=== PATIENT | male | born 1945 | race Caucasian/White ===

== ENCOUNTER → 2017-10-14 | Outpatient (CLI) | payer OTHER, MEDICAID ==
--- NOTE | 2017-10-14 12:30 | MRI ---
HISTORY: Chronic low back pain, radiculopathy Study: MRI lumbar spine without contrast Comparison: None Technique: Multiplanar multi-sequence MRI of the lumbar spine was obtained. Sagittal T1, sagittal T2 , and stir weighted images, axial T1, and axial T2 images were obtained. Findings: The lumbar spine demonstrates normal alignment. No abnormal cord or marrow signal identified. The co nus terminates at the junction of T12 and L1. The surrounding soft tissues are within normal limits. Vertebral body heights are preserved. Multilevel spondylosis and disc desiccation is present. T12 -- L1: No significant stenosis. L1 -- L2: Facet arthropathy and congenital pedicle shortening contribute to mild spinal canal narrowi ng. No foraminal stenosis. L2 -- L3: Facet arthropathy and congenital pedicle shortening are present in conjunction with a broad -based disc bulge and spondylitic changes resulting in severe spinal canal stenosis, severe lateral r ecess stenosis and moderate to severe foraminal entry stenosis. L3 -- L4: Facet arthropathy and congenital pedicle shortening are present in conjunction with a broad -based disc bulge and spondylitic changes resulting in severe spinal canal stenosis, severe lateral r ecess stenosis and moderate to severe foraminal entry stenosis. L4 -- L5: There is moderate spinal canal stenosis due to congenital pedicle shortening, facet arthrop athy and a circumferential disc bulge. There is severe bilateral lateral recess stenosis, severe left foraminal stenosis, and moderate to severe right foraminal stenosis. L5 -- S1: Facet arthropathy without significant stenosis. IMPRESSION: 1. Severe spinal canal stenosis at L2-L3 and L3-L4 with associated severe lateral recess stenosis and moderate to severe bilateral foraminal stenosis. 2. Moderate spinal canal stenosis at L4-5 with severe bilateral lateral recess stenosis, severe left foraminal stenosis, and moderate to severe right foraminal stenosis. Reported By:
== END | disposition home or self-care (01) | DRG 552 ==
LOC: RAD 10:17
PROVIDERS: ATTEND Nurse Practitioner
DX: M54.5 Low back pain (principal); M48.061 Spinal stenosis, lumbar region without neurogenic claudication
CPT/HCPCS: 72148

== ENCOUNTER 2019-10-09 13:02 | Observation (INO) ==
[2019-10-09] MEDS: NORCO 7.5/325 MG TAB PO SCH ×2 (15:26→20:52)
[2019-10-09] MEDS: TORADOL 30 MG VIAL IVP SCH ×2 (15:27→20:53)
[2019-10-09] MEDS: NS 1000 ML 1,000 ML IV SCH (15:27)
[2019-10-09 15:48] VITALS: BMI 30.5
[2019-10-09 15:58] LABS: BASOPHILS # (AUTO) 0.1 X10^3/uL (0.0-0.1); BASOPHILS % (AUTO) 0.6 % (0.2-1.0); EOSINOPHILS # (AUTO) 0.1 x10^3/uL (0.0-0.2); EOSINOPHILS % (AUTO) 0.9 % (0.9-2.9); HEMATOCRIT 45.1 % (42.0-54.0); LYMPHOCYTES # (AUTO) 0.7 X10^3/uL (1.3-2.9); MEAN CORPUSCULAR HEMOGLOBIN 29.7 pg (27.0-34.0); MEAN CORPUSCULAR HGB CONC 33.2 g/dL (33.0-35.0); MEAN CORPUSCULAR VOLUME 89.3 fL (80.0-100.0); MONOCYTES # (AUTO) 0.6 x10^3/uL (0.3-0.8); MONOCYTES % (AUTO) 7.5 % (0.0-13.0); PLATELET COUNT 165 X10^3/uL (150.0-450.0); RED BLOOD COUNT 5.05 X10^6/uL (4.7-6.0); RED CELL DISTRIBUTION WIDTH 14.7 % (11.6-16.5); WHITE BLOOD COUNT 8.5 X10^3/uL (3.6-10.0)
[2019-10-09 16:21] LABS: ALANINE AMINOTRANSFERASE 12 Units/L (12-78); ALKALINE PHOSPHATASE 113 Units/L (46-116); ASPARTATE AMINO TRANSFERASE 17 Units/L (15-37); BLOOD UREA NITROGEN 25 mg/dL (7-18); CALCIUM 8.6 mg/dL (8.5-10.1); CARBON DIOXIDE 32.8 mmol/L (21-32); CHLORIDE 106 mmol/L (98-107); COR CA(FOR HYPOALB) 9.4 mg/dL (8.5-10.1); COR NA(FOR HYPERGLY) 145 mmol/L (136-145); CREATININE 1.32 mg/dL (0.70-1.30); SODIUM 144 mmol/L (136-145); TOTAL PROTEIN 7.2 g/dL (6.4-8.2); eGFR NON BLACK RACES 56 (>60)
[2019-10-09 20:28] LABS: BILIRUBIN,URINE NEGATIVE (NEGATIVE); BLOOD/HEMOGLOBIN,URINE 1+ (NEGATIVE); GLUCOSE, URINE 1+ (NEGATIVE); KETONES,URINE NEGATIVE (NEGATIVE); LEUKOCYTE ESTERASE ,URINE 1+ (NEGATIVE); NITRITES,URINE NEGATIVE (NEGATIVE); PH,URINE 6.5 (5.0 - 8.0); PROTEIN,URINE 3+ (NEGATIVE); UROBILINOGEN,URINE 2+ (NORMAL)
[2019-10-09 20:59] LABS: APPEARANCE,URINE CLEAR (CLEAR); COLOR,URINE YELLOW (YELLOW)
[2019-10-09 21:00] LABS: BACTERIA,URINE TRACE /HPF (NEGATIVE); MUCUS,URINE FEW /HPF (NEGATIVE); SQUAMOUS EPITHELIAL CELL,UR FEW /HPF (NEGATIVE)
[2019-10-09] MEDS ORDERED: COZAAR ONE (23:54)
[2019-10-10] MEDS: COZAAR PO SCH ×2 (00:05→08:48)
[2019-10-10] MEDS: NORCO 7.5/325 MG TAB PO SCH ×3 (02:32→14:17)
[2019-10-10] MEDS: TORADOL 30 MG VIAL IVP SCH ×3 (02:32→14:17)
[2019-10-10] MEDS: NS 1000 ML 1,000 ML IV SCH (02:32)
[2019-10-10 05:35] LABS: ALANINE AMINOTRANSFERASE 11 Units/L (12-78); ALBUMIN 2.5 g/dL (3.4-5.0); ALKALINE PHOSPHATASE 94 Units/L (46-116); ASPARTATE AMINO TRANSFERASE 13 Units/L (15-37); BLOOD UREA NITROGEN 24 mg/dL (7-18); CALCIUM 7.6 mg/dL (8.5-10.1); CARBON DIOXIDE 28.5 mmol/L (21-32); CHLORIDE 107 mmol/L (98-107); COR CA(FOR HYPOALB) 8.8 mg/dL (8.5-10.1); CREATININE 1.15 mg/dL (0.70-1.30); SODIUM 143 mmol/L (136-145); eGFR NON BLACK RACES > 60 (>60)
[2019-10-10] MEDS ORDERED: KLOR-CON PO PRN (05:49)
[2019-10-10] MEDS ORDERED: MICRO K EXTEN CAP 10 MEQ PO PRN (05:49)
[2019-10-10] MEDS ORDERED: POTASSIUM CHL 60 MEQ/NS 0.45% 500 ML IV PRN (05:49)
[2019-10-10] MEDS ORDERED: K-DUR TAB 20 MEQ PO PRN (05:49)
[2019-10-10] MEDS ORDERED: POTASSIUM CHL 40 MEQ/NS 0.45% 500 ML IV PRN (05:49)
[2019-10-10] MEDS ORDERED: POTASSIUM CHLORIDE LIQ 20 MEQ UDC PO PRN (05:49)
[2019-10-10] MEDS ORDERED: K-RIDER 10 MEQ/NS 100 ML 10 MEQ/100 ML BAG IV PRN (05:49)
[2019-10-10 06:16] LABS: BASOPHILS % (AUTO) 0.5 % (0.2-1.0); EOSINOPHILS # (AUTO) 0.2 x10^3/uL (0.0-0.2); EOSINOPHILS % (AUTO) 3.8 % (0.9-2.9); HEMATOCRIT 40.5 % (42.0-54.0); HEMOGLOBIN 13.2 g/dL (13.5-18.0); LYMPHOCYTES # (AUTO) 1.4 X10^3/uL (1.3-2.9); LYMPHOCYTES % (AUTO) 21.9 % (21.0-51.0); MEAN CORPUSCULAR HEMOGLOBIN 29.6 pg (27.0-34.0); MEAN CORPUSCULAR HGB CONC 32.5 g/dL (33.0-35.0); MEAN PLATELET VOLUME 10.4 fL (7.4-11.0); MONOCYTES # (AUTO) 0.6 x10^3/uL (0.3-0.8); MONOCYTES % (AUTO) 8.7 % (0.0-13.0); NEUTROPHILS # (AUTO) 4.1 x10^3/uL (2.2-4.8); NEUTROPHILS % (AUTO) 65.1 % (42.0-75.0); PLATELET COUNT 146 X10^3/uL (150.0-450.0); RED BLOOD COUNT 4.45 X10^6/uL (4.7-6.0); RED CELL DISTRIBUTION WIDTH 14.8 % (11.6-16.5); WHITE BLOOD COUNT 6.4 X10^3/uL (3.6-10.0)
[2019-10-10] MEDS: MAGNESIUM SULFATE 1 GRAM/100 mL PREMIX 1 GM/100 ML BAG IV PRN ×2 (06:44→11:53)
--- NOTE | 2019-10-10 09:15 | MRI ---
HISTORYIntractable lower back painSTUDYMRI OF THE LUMBAR SPINE without IV CONTRASTCOMPARISONNoneTECHNIQUEMultiplaner, multisequence MRI of the lumbar spine is performed withou t IV contrastFINDINGSThe mobility scooter repairer view demonstrates mild levocurvature of the lumbar spine centered at L 3 with [place] angle measurement less than 10 degrees. There is multilevel desiccation of disc signal in dicating degenerative signal changes of the intervertebral discs, most severe at L2-3, L3-4 and L4-5 levels. There is mild disc space narrowing at L1-2, L2-3 and L3-4. The paraspinal muscles are well de veloped without atrophy. The conus medullaris terminates at L1, maintaining appropriate signal and ov erall morphology. No paraspinal fluid collections are demonstrated. Large right-sided bridging osteop hyte complexes observed at L2-3.The cauda equina nerve roots are crowded at the levels of L2-3 and L3 -4. This will be discussed in greater detail below. No clumping of the nerve roots identified.Beginni ng at the level of L1-L2, endplate spondylosis, desiccation of disc signal and mild disc space narrow ing is observed. Endplate spondylosis is evident. There is mild circumferential disc bulge and hyper trophic facet arthropathy is observed without spinal canal compromise. There is mild to moderate bila teral neural foraminal compromise.L2-L3 level demonstrates and extrusion type right paracentral disc herniation which migrates inferiorly to the intervertebral disc, residing along the posterior border of the L3 vertebral body. There is approximately 1.7 cm of inferior migration of disc material with n o sequestered disc fragments. Spondylosis and hyper trophic facet arthropathy are observed. There is severe right-sided neural foraminal compromise with impingement of the exiting nerve root. There is m oderate to severe left-sided neural foraminal compromise. The transverse diameter of the spinal canal is severely narrowed at 7 mm while the AP diameter is also approximately 7 mm. Overall this is consi stent with severe spinal stenosis. The disc extrusion, as measured in the sagittal plane is approxima tely 2.8 cm in length and 9 mm anteriorly to posteriorly.At the level of L3-L4, there is moderate dif fuse circumferential disc bulge with a superimposed central disc protrusion component which indents a nd compresses the thecal sac. Posteriorly there is moderate facet arthropathy and redundancy of the l igamentum flavum is observed. The spinal canal is severely narrowed, measuring only 5 mm anteriorly t o posteriorly. There is severe left-sided neural foraminal compromise with impingement of the exiting nerve root. There is moderate to severe right-sided neural foraminal compromise.L4-L5 level demonstr ates diffuse circumferential disc bulge, spondylosis and hyper trophic facet arthropathy with redunda ncy of the ligamentum flavum. The spinal canal is narrowed to approximately 9 mm consistent with mild spinal stenosis. However there is severe bilateral neural foraminal compromise.L5-S1 level demonstra suzi no evidence of a disc herniation. Hyper trophic facet arthropathy, spondylosis and mild circumfer ential disc bulge contribute to moderate left and right neural foraminal compromise. Spinal canal cl[place] meter measurement is approximately 9.5 mm consistent with mild spinal stenosis.No acute fractures or pars defects are demonstrated.IMPRESSIONAt L2-L3, there is a large right paracentral disc extrusion w ith inferior migration of disc material, compressing the thecal sac and contributing to severe spinal stenosis.At L3-L4, there is diffuse circumferential disc bulge with a superimposed central disc prot rusion resulting in severe spinal stenosisMild levocurvature of the lumbar spine affiliated with [facility] degenerative disc disease, spondylosis and facet arthropathy.The collaborative degenerative fi ndings contribute to multilevel spinal stenosis and bilateral neural foraminal compromise. A detailed level by level analysis is provided within the body of the report.Electronically signed by: KATHY CRAWLEY (Oct 10, 2019 09:13:13)
[2019-10-10] MEDS ORDERED: ELIQUIS PO SCH (10:15)
[2019-10-10] MEDS ORDERED: NORVASC TAB 5 MG PO SCH (11:00)
[2019-10-10] MEDS ORDERED: CORDARONE TAB 200 MG PO SCH (11:00)
[2019-10-10 11:46] LABS: FREE T4 (FREE THYROXINE) 1.42 ng/dL (0.76-1.46); TSH (3RD GENERATION) 11.374 uIU/mL (0.358-3.74)
--- NOTE | 2019-10-10 12:19 | W.DIS.FURT ---
Summary of Discharge Discharge Summary of Date Date of Exam: 10/10/19 Admission Date Date of Admission: 10/09/19 Admission Diagnosis Patient Problems (Updated 10/10/19 @ 13:08 by Josemanuel Underwood) A-fib (Acute) I48.91 HTN (hypertension) (Acute) I10 Acute herniated disc (Acute) Spinal stenosis of lumbar region (Acute) M48.061 Degenerative disc disease, lumbar (Acute) M51.36 Hospital Course: Pt is a 74 y/o m pmhx Afib(Amiodarone,Eliquis), HTN(Amlodipine,Losartan), DDD(Tramadol, Zanaflex) admitted after having acute weakness in his right lower extremity. He reported having a history of DDD with pain that has been progressively getting worse but was still able to ambulate using a cane until a few days ago when his right leg started giving out on him and loss of strength to the point he can no longer ambulate. He reports severe pain in his lower back and radiculopathy that radiates legs bilaterally R>L. Denies urinary/bowel incontinence. He had MRI done that shows: IMPRESSION: At L2-L3, there is a large right paracentral disc extrusion with inferior migration of disc material, compressing the thecal sac and contributing to severe spinal stenosis. At L3-L4, there is diffuse circumferential disc bulge with a superimposed central disc protrusion resulting in severe spinal stenosis Mild levocurvature of the lumbar spine affiliated with multilevel degenerative disc disease, spondylosis and facet arthropathy. The collaborative degenerative findings contribute to multilevel spinal stenosis and bilateral neural foraminal compromise. A detailed level by level analysis is provided within the body of the report. On exam: HEENT:NC/AT, Heart:RRR, no MRG, Chest:CTAB, Abdomen:+BS, non-distended, non-tender, Decreased strength RLE 3/5 with muscle atrophy and fasciculations when lifting, LLE 4/5, sensations intact, patella reflex 3+ mildly hyper reflexive. Received pain medication:Hydrocodone 7.5/325mg q6h prn, and received Decadron 10mg IV x1 dose. Believe it is in patients best interest to be transferred to higher level of care facility to be evaluated by neurosurgery. Discussed with fermentation scientist neurosurgery-Dr Mancini at [facility], [place], [place] and hospitalist Dr Kinsey, agrees to accept transfer at [facility]. Vital Signs: Vital Signs (72 hours) 10/09/19 15:26 10/09/19 15:27 10/09/19 15:57 Temperature Pulse Rate [Right Brachial] Respiratory Rate 20 20 20 Blood Pressure [Right Arm] O2 Sat by Pulse Oximetry 10/09/19 16:00 10/09/19 16:26 10/09/19 20:00 Temperature 98.4 F 97.5 F L Pulse Rate [Right Brachial] 60 68 Respiratory Rate 20 20 20 Blood Pressure [Right Arm] 190/93 189/88 O2 Sat by Pulse Oximetry 96 10/09/19 20:52 10/09/19 20:53 10/09/19 21:23 Temperature Pulse Rate [Right Brachial] Respiratory Rate 20 20 20 Blood Pressure [Right Arm] O2 Sat by Pulse Oximetry 10/09/19 21:52 10/09/19 23:50 10/10/19 02:32 Temperature 97.9 F Pulse Rate [Right Brachial] 58 L Respiratory Rate 20 18 18 Blood Pressure [Right Arm] 204/88 O2 Sat by Pulse Oximetry 96 10/10/19 03:02 10/10/19 03:32 10/10/19 04:00 Temperature 98 F Pulse Rate [Right Brachial] 62 Respiratory Rate 16 16 16 Blood Pressure [Right Arm] 187/90 O2 Sat by Pulse Oximetry 97 10/10/19 08:00 10/10/19 08:47 10/10/19 08:48 Temperature 98.6 F Pulse Rate [Right Brachial] 53 L Respiratory Rate 18 18 18 Blood Pressure [Right Arm] 202/98 O2 Sat by Pulse Oximetry 96 10/10/19 09:18 10/10/19 09:47 10/10/19 10:12 Temperature Pulse Rate [Right Brachial] Respiratory Rate 18 18 Blood Pressure [Right Arm] 182/79 O2 Sat by Pulse Oximetry Labs: Laboratory Last Values WBC 6.4 X10^3/uL (3.6-10.0) 10/10/19 04:41 RBC 4.45 X10^6/uL (4.7-6.0) L 10/10/19 04:41 Hgb 13.2 g/dL (13.5-18.0) L 10/10/19 04:41 Hct 40.5 % (42.0-54.0) L 10/10/19 04:41 MCV 91.0 fL (80.0-100.0) 10/10/19 04:41 MCH 29.6 pg (27.0-34.0) 10/10/19 04:41 MCHC 32.5 g/dL (33.0-35.0) L 10/10/19 04:41 RDW 14.8 % (11.6-16.5) 10/10/19 04:41 Plt Count 146 X10^3/uL (150.0-450.0) L 10/10/19 04:41 MPV 10.4 fL (7.4-11.0) 10/10/19 04:41 Neut % (Auto) 65.1 % (42.0-75.0) 10/10/19 04:41 Lymph % (Auto) 21.9 % (21.0-51.0) 10/10/19 04:41 Early % (Auto) 8.7 % (0.0-13.0) 10/10/19 04:41 Eos % (Auto) 3.8 % (0.9-2.9) H 10/10/19 04:41 Baso % (Auto) 0.5 % (0.2-1.0) 10/10/19 04:41 Neut # (Auto) 4.1 x10^3/uL (2.2-4.8) 10/10/19 04:41 Lymph # (Auto) 1.4 X10^3/uL (1.3-2.9) 10/10/19 04:41 Early # (Auto) 0.6 x10^3/uL (0.3-0.8) 10/10/19 04:41 Eos # (Auto) 0.2 x10^3/uL (0.0-0.2) 10/10/19 04:41 Baso # (Auto) 0.0 X10^3/uL (0.0-0.1) 10/10/19 04:41 Absolute Nucleated RBC 0.2 /100WBC 10/10/19 04:41 Sodium 143 mmol/L (136-145) 10/10/19 04:41 Corrected Sodium TNP 10/10/19 04:41 Potassium 3.4 mmol/L (3.5-5.1) L 10/10/19 04:41 Chloride 107 mmol/L (98-107) 10/10/19 04:41 Carbon Dioxide 28.5 mmol/L (21-32) 10/10/19 04:41 BUN 24 mg/dL (7-18) H 10/10/19 04:41 Creatinine 1.15 mg/dL (0.70-1.30) 10/10/19 04:41 Est GFR (MDRD) Af Amer > 60 (>60) 10/10/19 04:41 Est GFR (MDRD) Non-Af > 60 (>60) 10/10/19 04:41 Glucose 102 mg/dL (65-99) H 10/10/19 04:41 Calcium 7.6 mg/dL (8.5-10.1) L 10/10/19 04:41 Corrected Calcium 8.8 mg/dL (8.5-10.1) 10/10/19 04:41 Magnesium 1.8 mg/dL (1.7-2.9) 10/10/19 04:41 Total Bilirubin 0.60 mg/dL (0.2-1.0) 10/10/19 04:41 AST 13 Units/L (15-37) L 10/10/19 04:41 ALT 11 Units/L (12-78) L 10/10/19 04:41 Alkaline Phosphatase 94 Units/L (46-116) 10/10/19 04:41 Total Protein 6.0 g/dL (6.4-8.2) L 10/10/19 04:41 Albumin 2.5 g/dL (3.4-5.0) L 10/10/19 04:41 Globulin 3.5 g/dL (2.5-4.5) 10/10/19 04:41 Albumin/Globulin Ratio 0.7 Ratio (1.1-2.1) L 10/10/19 04:41 Free T4 1.42 ng/dL (0.76-1.46) 10/10/19 04:41 TSH 3rd Generation 11.374 uIU/mL (0.358-3.74) H 10/10/19 04:41 Specimen Type Clean catch urine 10/09/19 20:00 Urine Color Yellow (YELLOW) 10/09/19 20:00 Urine Appearance Clear (CLEAR) 10/09/19 20:00 Urine pH 6.5 (5.0 - 8.0) 10/09/19 20:00 Ur Specific [place] 1.015 (1.000-1.030) 10/09/19 20:00 Urine Protein 3+ (NEGATIVE) 10/09/19 20:00 Urine Glucose (UA) 1+ (NEGATIVE) 10/09/19 20:00 Urine Ketones Negative (NEGATIVE) 10/09/19 20:00 Urine Occult Blood 1+ (NEGATIVE) 10/09/19 20:00 Urine Nitrite Negative (NEGATIVE) 10/09/19 20:00 Urine Bilirubin Negative (NEGATIVE) 10/09/19 20:00 Urine Urobilinogen 2+ (NORMAL) 10/09/19 20:00 Ur Leukocyte Esterase 1+ (NEGATIVE) 10/09/19 20:00 Urine RBC 3-5 /HPF (0-3) A 10/09/19 20:00 Urine WBC 0-2 /HPF (0-5) 10/09/19 20:00 Ur Squamous Epith Cells Few /HPF (NEGATIVE) 10/09/19 20:00 Urine Bacteria Trace /HPF (NEGATIVE) 10/09/19 20:00 Urine Mucus Few /HPF (NEGATIVE) 10/09/19 20:00 Ur Culture Indicated? No/not indicated 10/09/19 20:00 Reason For Visit: INTRACTABLE BACK PAIN Discharge Date Discharge Date: 10/10/19 Discharge Diagnosis All Active Problems (Updated 10/10/19 @ 13:08 by Josemanuel Underwood) A-fib (Acute) HTN (hypertension) (Acute) Acute herniated disc (Acute) Low back pain due to bilateral sciatica (Acute) Diverticulosis of colon (Acute) Spinal stenosis of lumbar region (Acute) Degenerative disc disease, lumbar (Acute) Discharge Medications Discharge Medications: No Known Drug Allergies Allergy (Verified 09/22/19 11:26) CONTINUE taking the following medications amiodarone 200 mg PO DAILY 10/09/19 [History] amlodipine 5 mg PO DAILY 10/09/19 [History] apixaban [Eliquis] 5 mg PO BID 10/09/19 [History] losartan 50 mg PO DAILY 10/09/19 [History] tizanidine 4 mg PO HS 10/09/19 [History] tramadol 50 mg PO QID PRN 10/09/19 [History] Discharge Disposition Discharge Disposition: [facility], [place], [place]
[2019-10-10] MEDS ORDERED: DECADRON INJ IV ONE (12:32)
[2019-10-10 14:27] VITALS: BP 190/79
[2019-10-10] MEDS ORDERED: ZANAFLEX PO SCH (21:00)
== END 2019-10-10 14:30 | disposition short-term general hospital (02) ==
LOC: MED/SURG
PROVIDERS: ADMIT Internal Medicine; ATTEND Internal Medicine
DX: M54.5 Low back pain; M48.061 Spinal stenosis, lumbar region without neurogenic claudication; M25.551 Pain in right hip; I10 Essential (primary) hypertension; M51.36 Other intervertebral disc degeneration, lumbar region; I48.91 Unspecified atrial fibrillation; I25.10 Atherosclerotic heart disease of native coronary artery without angina pectoris; K21.9 Gastro-esophageal reflux disease without esophagitis; R73.9 Hyperglycemia, unspecified; R94.4 Abnormal results of kidney function studies
CPT/HCPCS: 36415; 72148; 80053; 81001; 83735; 84439; 84443; 85025; 96360; 96361; 96374; A4216; A4222; G0378; J1100; J1885; J3475; J7030